=== PATIENT | male | born 1970 | race Caucasian/White ===

== ENCOUNTER 2019-08-10 08:25 | Inpatient (IN) ==
[2019-08-10] MEDS ORDERED: Famotidine 20 MG/2 ML VIAL IVP ONE (08:30)
[2019-08-10] MEDS ORDERED: Acetaminophen IV 1,000 MG/100 ML INFUS..BTL IVPB ONE (08:31)
[2019-08-10] MEDS ORDERED: Pregabalin 75 MG CAPSULE PO ONE (08:31)
[2019-08-10] MEDS ORDERED: Albuterol 2.5 MG/3 ML NEBULIZER IH PRN (08:38)
[2019-08-10] MEDS ORDERED: CeFAZolin Syr 2,000MG/20 ML 2,000 MG/20 ML SYRINGE IVPB ONE (08:38)
[2019-08-10] MEDS ORDERED: Ringers Solution, Lactated 1,000 ML IVC SCH ×2 (08:45→12:56)
[2019-08-10] MEDS ORDERED: *HR* Propofol 200 MG/20 ML VIAL IVP ONE (08:46)
[2019-08-10] MEDS ORDERED: *HR* Midazolam HCl 2 MG/2 ML VIAL ONE (08:46)
[2019-08-10] MEDS ORDERED: *HR* FentaNYL (PF) 100 MCG/2 ML VIAL ONE (08:46)
[2019-08-10] MEDS ORDERED: Ondansetron 4 MG/2 ML VIAL ONE (08:57)
[2019-08-10] MEDS ORDERED: Lidocaine HCL 4 ML Topical Solution (Laryng-O-Jet Kit Sterile Pak) TP ONE (08:57)
[2019-08-10] MEDS ORDERED: Lidocaine -MPF 2% 2 ML VIAL ONE (08:57)
[2019-08-10] MEDS ORDERED: *HR* Succinylcholine 200 MG/10 ML VIAL IVP ONE (08:57)
[2019-08-10] MEDS ORDERED: Dexamethasone 4 MG/ML VIAL ONE (08:57)
[2019-08-10] MEDS ORDERED: Ropivacaine/PF 0.5% 30 ML VIAL ONE (09:13)
[2019-08-10] MEDS ORDERED: Ethanol\\Acetic Acid\\Na Ace\\Ben 1,000 ML IRRIG.SOLN IR ONE (09:24)
[2019-08-10] MEDS ORDERED: *HR* PHENYLEPHRINE 1,000 MCG/10 ML SYRINGE IVP ONE (10:49)
[2019-08-10] MEDS ORDERED: Ketorolac 30 MG/ML VIAL ONE (11:26)
[2019-08-10] MEDS ORDERED: D5% in Water 1,000 ML IVC PRN (12:56)
[2019-08-10] MEDS ORDERED: MOM Conc 10 ML UD.LIQ PO PRN (12:56)
[2019-08-10] MEDS ORDERED: Naloxone 0.4 MG/ML INJ IVP PRN (12:56)
[2019-08-10] MEDS ORDERED: Dextrose Gel 15 GM/37.5 ML TUBE PO PRN ×2 (12:56)
[2019-08-10] MEDS ORDERED: *HR* Dextrose 50 % in Water (Syg) 50 ML SYRINGE IVP PRN (12:56)
[2019-08-10] MEDS ORDERED: *HR* OxyCODONE/APAP 5/325 TABLET PO PRN (12:56)
[2019-08-10] MEDS ORDERED: Temazepam 15 MG CAPSULE PO PRN (12:56)
[2019-08-10] MEDS ORDERED: *HR* OxyCODONE Immed Rel 5 MG TABLET PO PRN (12:56)
[2019-08-10] MEDS ORDERED: Sennosides 8.6 MG TABLET PO PRN (12:56)
[2019-08-10] MEDS ORDERED: Ondansetron 4 MG/2 ML VIAL IVP PRN (12:56)
[2019-08-10] MEDS: Insulin LISPRO 300 UNITS/3 ML VIAL SQ SCH ×2 (14:51→18:21)
[2019-08-10] MEDS ORDERED: *HR* Enoxaparin 30 MG/0.3 ML SYRINGE SQ SCH ×2 (18:00)
[2019-08-10 18:27] VITALS: BP 129/76
[2019-08-10] MEDS ORDERED: Aspirin Enteric Coated 81 MG Tablet PO SCH (21:00)
[2019-08-10] MEDS ORDERED: Melatonin 3 MG TABLET PO SCH (21:00)
[2019-08-10] MEDS ORDERED: *HR* Metformin 500 MG TABLET PO SCH (21:00)
[2019-08-10] MEDS ORDERED: Insulin LISPRO 300 UNITS/3 ML VIAL SQ SCH (21:00)
[2019-08-11] MEDS ORDERED: Lisinopril-HCTZ 20-12.5mg TABLET PO SCH (09:00)
== END 2019-08-10 18:35 | disposition home or self-care (01) | DRG 483 ==
LOC: SAMDAY 08:25 → 3NENU 13:35
PROVIDERS: ADMIT Orthopaedic Surgery; ATTEND Orthopaedic Surgery